=== PATIENT | male | born 1970 | race Caucasian/White ===

== ENCOUNTER 2018-10-22 16:56 | Emergency (ER) | payer MEDICAID, OTHER ==
[2018-10-22] MEDS ORDERED: Sodium Chloride 0.9% 10 ML Syringe FLUSH PRN (18:00)
[2018-10-22] MEDS ORDERED: Sodium Chloride 0.9% 1,000 ML IV ONE (18:00)
[2018-10-22] MEDS ORDERED: Ketorolac 30 MG/ML SDV IVPUSH ONE (18:00)
[2018-10-22] MEDS ORDERED: traMADol 50 MG Tab PO ONE (20:03)
[2018-10-22] MEDS ORDERED: Acetaminophen 325 MG Tab PO ONE (20:03)
--- NOTE | 2018-10-22 20:16 | EDM.PDOC ---
ED HPI GENERAL MEDICAL PROBLEM - General Chief Complaint: Fever Stated Complaint: FEVER/BODY ACHES Time Seen by Provider: 10/22/18 18:00 Source of Information: Reports: Patient History Limitations: Reports: No Limitations - History of Present Illness INITIAL COMMENTS - FREE TEXT/NARRATIVE: 48-year-old male presents for evaluation and treatment of a fever. Patient reports symptoms started last night. Current symptoms include fevers, chills, body aches and nausea. He denies any diarrhea vomiting, dysuria, cough, chest pain, abdominal pain or any skin rashes. Additionally he does denies any sore throat, runny nose or upper respiratory symptoms. Patient is a type I diabetic. Last sugar was 171. Patient reports he has been outside plenty but no tick bites any nose but has had plenty of mosquito bites. Primary care providers Dr. Ball. Patient reports that he has a history of renal disease. - Related Data Allergies Allergy/AdvReac Type Severity Reaction Status Date / Time morphine Allergy Nausea and Verified 12/27/14 07:38 Vomiting [id number]-[id number] Reductase Allergy Muscle Verified 10/22/18 17:07 Inhibitor Aches Home Meds: Home Meds Albuterol Sulfate [Albuterol Sulfate Hfa] 8.5 gm IH DAILY 10/22/18 [History] Aspirin [Ecotrin EC] 81 mg PO DAILY 10/22/18 [History] Escitalopram Oxalate [Lexapro] 20 mg PO DAILY 10/22/18 [History] Gabapentin [Neurontin] 300 mg PO DAILY 10/22/18 [History] Gabapentin [Neurontin] 600 mg PO BEDTIME 10/22/18 [History] Insulin Aspart [NovoLOG] 0 unit SQ WITHMEALSANDBED 10/22/18 [History] Losartan [Cozaar] 100 mg PO DAILY 10/22/18 [History] Metoprolol Succinate [Toprol Xl] 50 mg PO DAILY 10/22/18 [History] Multivitamin with Minerals [Multiple Vitamin] 1 tab PO DAILY 10/22/18 [History] Ranitidine [Zantac] 150 mg PO DAILY 10/22/18 [History] Sildenafil [Revatio] 20 mg PO TID 10/22/18 [History] Sodium Bicarbonate 650 mg PO BID 10/22/18 [History] amLODIPine Besylate [Norvasc] 5 mg PO DAILY 10/22/18 [History] buPROPion HCl [Wellbutrin Xl] 150 mg PO DAILY 10/22/18 [History] busPIRone [Buspar] 15 mg PO DAILY 10/22/18 [History] hydroCHLOROthiazide [Hydrochlorothiazide] 25 mg PO DAILY 10/22/18 [History] Past Medical History Cardiovascular History: Reports: High Cholesterol, Hypertension Genitourinary History: Reports: Renal Disease Endocrine/Metabolic History: Reports: Diabetes, Type II Social & Family History - Tobacco Use Smoking Status *Q: Never Smoker - Recreational Drug Use Recreational Drug Use: No ED ROS GENERAL - Review of Systems Review Of Systems: See Below Constitutional: Reports: Fever, Chills, Other (bodyaches) HEENT: Denies: Ear Pain, Throat Pain Respiratory: Denies: Cough Cardiovascular: Denies: Chest Pain GI/Abdominal: Denies: Abdominal Pain, Diarrhea, Nausea, Vomiting : Denies: Dysuria Musculoskeletal: Denies: Neck Pain Skin: Denies: Rash Neurological: Reports: Headache ED EXAM, GENERAL - Physical Exam Exam: See Below Exam Limited By: No Limitations General Appearance: Alert, WD/WN, No Apparent Distress, Obese Eye Exam: Bilateral Eye: Normal Inspection Ears: Normal External Exam, Normal Canal, Hearing Grossly Normal, Hearing Loss Nose: Normal Inspection Throat/Mouth: Normal Inspection, Normal Lips, Normal Teeth, Normal Gums, Normal Oropharynx, Normal Voice, No Airway Compromise Neck: Normal Inspection, Supple, Non-Tender, Full Range of Motion Respiratory/Chest: No Respiratory Distress, Lungs Clear, Normal Breath Sounds Cardiovascular: Normal Peripheral Pulses, Regular Rate, Rhythm, No Murmur GI/Abdominal: Normal Bowel Sounds, Soft, Non-Tender Extremities: Normal Inspection Neurological: Alert, Oriented, Normal Cognition Psychiatric: Normal Affect, Normal Mood Skin Exam: Normal Color, Diaphoretic, Increased Warmth Course - Vital Signs Last Recorded V/S: Last Vital Signs Temp 97.8 F 10/22/18 20:29 Pulse 80 10/22/18 20:29 Resp 17 10/22/18 20:29 BP 153/82 H 10/22/18 20:29 Pulse Ox 95 10/22/18 20:29 - Orders/Labs/Meds Labs: Laboratory Tests 10/22/18 10/22/18 10/22/18 Range/Units 17:52 17:52 17:52 WBC 7.57 (4.23-9.07) K/mm3 RBC 4.72 (4.63-6.08) M/mm3 Hgb 13.8 (13.7-17.5) gm/L Hct 39.8 L (40.1-51.0) % MCV 84.3 (79.0-92.2) fl MCH 29.2 (25.7-32.2) pg MCHC 34.7 (32.2-35.5) g/dl RDW Std Deviation 40.6 (35.1-43.9) fL Plt Count 186 (163-337) K/mm3 MPV 9.6 (9.4-12.3) fl Neut % (Auto) 86.3 H (34.0-67.9) % Lymph % (Auto) 7.0 L (21.8-53.1) % [place] % (Auto) 6.2 (5.3-12.2) % Eos % (Auto) 0.1 L (0.8-7.0) Baso % (Auto) 0.1 (0.1-1.2) % Neut # (Auto) 6.53 H (1.78-5.38) K/mm3 Lymph # (Auto) 0.53 L (1.32-3.57) K/mm3 [place] # (Auto) 0.47 (0.30-0.82) K/mm3 Eos # (Auto) 0.01 L (0.04-0.54) K/mm3 Baso # (Auto) 0.01 (0.01-0.08) K/mm3 Manual Slide Review Abnormal smear Sodium 136 (136-145) mEq/L Potassium 4.2 (3.5-5.1) mEq/L Chloride 100 (98-107) mEq/L Carbon Dioxide 27 (21-32) mEq/L Anion Gap 13.2 (5-15) BUN 31 H (7-18) mg/dL Creatinine 2.1 H (0.7-1.3) mg/dL Est Cr Clr Drug Dosing 46.81 mL/min Estimated GFR (MDRD) 34 (>60) mL/min BUN/Creatinine Ratio 14.8 (14-18) Glucose 196 H (74-106) mg/dL Calcium 8.1 L (8.5-10.1) mg/dL Total Bilirubin 0.5 (0.2-1.0) mg/dL AST 13 L (15-37) U/L ALT 18 (16-63) U/L Alkaline Phosphatase 93 (46-116) U/L C-Reactive Protein 13.9 H* (<1.0) mg/dL Total Protein 6.2 L (6.4-8.2) g/dl Albumin 2.9 L (3.4-5.0) g/dl Globulin 3.3 gm/dL Albumin/Globulin Ratio 0.9 L (1-2) Urine Color (Yellow) Urine Appearance (Clear) Urine pH (5.0-8.0) Ur Specific [place] (1.005-1.030) Urine Protein (Negative) Urine Glucose (UA) (Negative) Urine Ketones (Negative) Urine Occult Blood (Negative) Urine Nitrite (Negative) Urine Bilirubin (Negative) Urine Urobilinogen (0.2-1.0) Ur Leukocyte Esterase (Negative) Urine RBC (0-5) /hpf Urine WBC (0-5) /hpf Ur Squamous Epith Cells (0-5) /hpf Urine Bacteria (FEW) /hpf Urine Mucus (FEW) /hpf West Nile Virus IgM Ab Negative 10/22/18 Range/Units 18:22 WBC (4.23-9.07) K/mm3 RBC (4.63-6.08) M/mm3 Hgb (13.7-17.5) gm/L Hct (40.1-51.0) % MCV (79.0-92.2) fl MCH (25.7-32.2) pg MCHC (32.2-35.5) g/dl RDW Std Deviation (35.1-43.9) fL Plt Count (163-337) K/mm3 MPV (9.4-12.3) fl Neut % (Auto) (34.0-67.9) % Lymph % (Auto) (21.8-53.1) % [place] % (Auto) (5.3-12.2) % Eos % (Auto) (0.8-7.0) Baso % (Auto) (0.1-1.2) % Neut # (Auto) (1.78-5.38) K/mm3 Lymph # (Auto) (1.32-3.57) K/mm3 [place] # (Auto) (0.30-0.82) K/mm3 Eos # (Auto) (0.04-0.54) K/mm3 Baso # (Auto) (0.01-0.08) K/mm3 Manual Slide Review Sodium (136-145) mEq/L Potassium (3.5-5.1) mEq/L Chloride (98-107) mEq/L Carbon Dioxide (21-32) mEq/L Anion Gap (5-15) BUN (7-18) mg/dL Creatinine (0.7-1.3) mg/dL Est Cr Clr Drug Dosing mL/min Estimated GFR (MDRD) (>60) mL/min BUN/Creatinine Ratio (14-18) Glucose (74-106) mg/dL Calcium (8.5-10.1) mg/dL Total Bilirubin (0.2-1.0) mg/dL AST (15-37) U/L ALT (16-63) U/L Alkaline Phosphatase (46-116) U/L C-Reactive Protein (<1.0) mg/dL Total Protein (6.4-8.2) g/dl Albumin (3.4-5.0) g/dl Globulin gm/dL Albumin/Globulin Ratio (1-2) Urine Color Yellow (Yellow) Urine Appearance Clear (Clear) Urine pH 7.0 (5.0-8.0) Ur Specific [place] 1.015 (1.005-1.030) Urine Protein 2+ H (Negative) Urine Glucose (UA) Negative (Negative) Urine Ketones Negative (Negative) Urine Occult Blood Trace-lysed H (Negative) Urine Nitrite Negative (Negative) Urine Bilirubin Negative (Negative) Urine Urobilinogen 0.2 (0.2-1.0) Ur Leukocyte Esterase Negative (Negative) Urine RBC 0-5 (0-5) /hpf Urine WBC Not seen (0-5) /hpf Ur Squamous Epith Cells Not seen (0-5) /hpf Urine Bacteria Rare (FEW) /hpf Urine Mucus Rare (FEW) /hpf West Nile Virus IgM Ab Meds: Medications Discontinued Medications Generic Name Dose Route Start Last Admin Trade Name Freq PRN Reason Stop Dose Admin Acetaminophen 975 mg 10/22/18 20:03 10/22/18 20:07 Tylenol PO 10/22/18 20:04 975 mg NOW ONE Administration Sodium Chloride 1,000 mls @ 999 mls/hr 10/22/18 18:00 10/22/18 18:13 Normal Saline IV 10/22/18 19:00 999 mls/hr ONETIME ONE Administration Ketorolac Tromethamine 30 mg 10/22/18 18:00 10/22/18 18:14 Toradol IVPUSH 10/22/18 18:01 30 mg ONETIME ONE Administration Sodium Chloride 10 ml 10/22/18 18:00 10/22/18 18:14 Saline Flush FLUSH 10 ml ASDIRECTED PRN Administration Keep Vein Open Tramadol HCl 50 mg 10/22/18 20:03 10/22/18 20:07 Ultram PO 10/22/18 20:04 50 mg ONETIME ONE Administration - Radiology Interpretation Free Text/Narrative:: Two-view chest x-ray shows no acute intrathoracic process. - Re-Assessments/Exams Free Text/Narrative Re-Assessment/Exam: 10/22/18 20:02 Reviewed the labs and chest x-ray with the patient. His strep and flu were both negative as well Suspect viral upper respiratory infection. Recommend symptomatic care and close follow-up with primary care provider. Discharge instructions as documented. Departure - Departure Time of Disposition: 20:08 Disposition: Home, Self-Care 01 Condition: Fair Clinical Impression: Fever - Discharge Information *PRESCRIPTION DRUG MONITORING PROGRAM REVIEWED*: No *COPY OF PRESCRIPTION DRUG MONITORING REPORT IN PATIENT CHASTITY: No Instructions: Fever, Adult, [id number] Referrals: Benedict Mg MD [Primary Care Provider] - Forms: ED Department Discharge Additional Instructions: [id number] Tylenol and Motrin as needed for fevers and discomfort. Make sure you are drinking plenty of fluids. If you continue to have symptoms by Thursday follow-up with your primary care provider. Please return to the ER if your symptoms change or worsen.
[2018-10-22 20:30] VITALS: BP 153/82
--- NOTE | 2018-10-24 11:47 | CR ---
Chest: Two views of the chest were obtained. Comparison: No previous chest x-ray. Heart size and mediastinum are within normal limits. Lungs are clear with no acute parenchymal change. Bony structures are grossly intact. Impression: 1. Nothing acute is appreciated on two-view chest x-ray. Diagnostic code #1
== END 2018-10-22 20:27 | disposition home or self-care (01) ==
LOC: JD.ED 16:56
DX: R50.9 Fever, unspecified (principal); I10 Essential (primary) hypertension; E11.9 Type 2 diabetes mellitus without complications; Z88.5 Allergy status to narcotic agent; Z88.8 Allergy status to other drugs, medicaments and biological substances; Z79.82 Long term (current) use of aspirin; Z79.4 Long term (current) use of insulin; Z79.899 Other long term (current) drug therapy
CPT/HCPCS: 36415; 71046; 80053; 81001; 85025; 86140; 86788; 87081; 87430; 87804; 96361; 96374; 99283; A9270; J1885; J7040

== ENCOUNTER 2019-11-28 12:32 | Emergency (ER) | payer MEDICAID, OTHER ==
[2019-11-28] MEDS ORDERED: Sodium Chloride 0.9% 10 ML Syringe FLUSH PRN (13:17)
--- NOTE | 2019-11-28 15:20 | EDM.PDOC ---
ED HPI GENERAL MEDICAL PROBLEM - General Chief Complaint: Neurological Problem Stated Complaint: LIGHTHEADED Time Seen by Provider: 11/28/19 13:07 Source of Information: Reports: Patient History Limitations: Reports: No Limitations - History of Present Illness INITIAL COMMENTS - FREE TEXT/NARRATIVE: The patient presents because he was lightheaded. He was driving this morning a nd he felt lightheaded and needed to pack puller and have someone else drive. He says this has never happened before. He has no chest pain or shortness of breath. He has no fever, chills, or cough. He has no abdominal pain, nausea or vomiting. He has a history of type II diabetes and chronic renal issues. Onset: Sudden Duration: Hour(s): Severity: Moderate Improves with: Reports: None Worsens with: Reports: None Associated Symptoms: Reports: No Other Symptoms - Related Data Allergies Allergy/AdvReac Type Severity Reaction Status Date / Time morphine Allergy Nausea and Verified 12/27/14 07:38 Vomiting Bowmnbg-[id number] Reductase Allergy Muscle Verified 10/22/18 17:07 Inhibitor Aches Home Meds: Home Meds Albuterol Sulfate [Albuterol Sulfate Hfa] 8.5 gm IH DAILY 10/22/18 [History] Aspirin [Ecotrin EC] 81 mg PO DAILY 10/22/18 [History] Escitalopram Oxalate [Lexapro] 20 mg PO DAILY 10/22/18 [History] Insulin Aspart [NovoLOG] 0 unit SQ WITHMEALSANDBED 10/22/18 [History] Losartan [Cozaar] 100 mg PO DAILY 10/22/18 [History] Metoprolol Succinate [Toprol Xl] 50 mg PO DAILY 10/22/18 [History] Multivitamin with Minerals [Multiple Vitamin] 1 tab PO DAILY 10/22/18 [History] Sildenafil [Revatio] 20 mg PO TID 10/22/18 [History] Sodium Bicarbonate 650 mg PO BID 10/22/18 [History] amLODIPine Besylate [Norvasc] 5 mg PO DAILY 10/22/18 [History] buPROPion HCL [Wellbutrin Xl] 150 mg PO DAILY 10/22/18 [History] busPIRone [Buspar] 15 mg PO DAILY 10/22/18 [History] hydroCHLOROthiazide [Hydrochlorothiazide] 25 mg PO DAILY 10/22/18 [History] Past Medical History Cardiovascular History: Reports: High Cholesterol, Hypertension Gastrointestinal History: Reports: GERD Genitourinary History: Reports: Renal Disease Musculoskeletal History: Reports: Other (See Below) Other Musculoskeletal History: right lower leg fracture with hardware- has been removed Psychiatric History: Reports: Anxiety, Depression Endocrine/Metabolic History: Reports: Diabetes, Type I Oncologic (Cancer) History: Reports: Other (See Below) Other Oncologic History: right testicle cancer - Past Surgical History GI Surgical History: Reports: Appendectomy Social & Family History - Tobacco Use Smoking Status *Q: Never Smoker - Caffeine Use Caffeine Use: Reports: Soda - Recreational Drug Use Recreational Drug Use: No ED ROS GENERAL - Review of Systems Review Of Systems: See Below Constitutional: Reports: No Symptoms HEENT: Reports: No Symptoms Respiratory: Reports: No Symptoms Cardiovascular: Reports: Lightheadedness. Denies: Chest Pain Endocrine: Reports: No Symptoms GI/Abdominal: Reports: No Symptoms : Reports: No Symptoms Musculoskeletal: Reports: No Symptoms ED EXAM, NEURO - Physical Exam Exam: See Below Exam Limited By: No Limitations General Appearance: Alert, No Apparent Distress Ears: Normal External Exam Nose: Normal Inspection Head Exam: Atraumatic, Normocephalic Neck: Normal Inspection Respiratory/Chest: No Respiratory Distress, Lungs Clear, Normal Breath Sounds Cardiovascular: Regular Rate, Rhythm, No Edema, No Murmur GI/Abdominal: Soft, Non-Tender, No Organomegaly, No Mass Neurological: Alert, No Motor/Sensory Deficits, Oriented x 3 EKG INTERPRETATION EKG Date: 11/28/19 Time: 13:25 Rhythm: NSR Rate (Beats/Min): 70 Ophiem: Normal P-Wave: Present QRS: Normal ST-T: Normal QT: Normal Course - Vital Signs Last Recorded V/S: Last Vital Signs Temp 97.6 F 11/28/19 13:07 Pulse 79 11/28/19 13:07 Resp 20 11/28/19 13:07 BP 168/84 H 11/28/19 13:07 Pulse Ox 98 11/28/19 13:07 - Orders/Labs/Meds Orders: Active Orders 24 hr Category Date Time Status Cardiac Monitoring [RC] . DIRECTED Care 11/28/19 13:17 Active EKG Documentation Completion [RC] STAT Care 11/28/19 13:18 Active Peripheral IV Care [RC] . DIRECTED Care 11/28/19 13:18 Active CORONAVIRUS COVID-19 PCR PHL Stat Lab 11/28/19 14:23 Received Sodium Chloride 0.9% [Saline Flush] Med 11/28/19 13:17 Active 10 ml FLUSH ASDIRECTED PRN Peripheral IV Insertion Adult [OM.PC] Stat Oth 11/28/19 13:17 Ordered Medication Orders Sodium Chloride (Saline Flush) 10 ml FLUSH ASDIRECTED PRN PRN Reason: Keep Vein Open Labs: Laboratory Tests 11/28/19 11/28/19 11/28/19 Range/Units 13:35 13:35 13:35 WBC 6.68 (4.23-9.07) K/mm3 RBC 4.82 (4.63-6.08) M/mm3 Hgb 13.6 L (13.7-17.5) gm/dl Hct 40.8 (40.1-51.0) % MCV 84.6 (79.0-92.2) fl MCH 28.2 (25.7-32.2) pg MCHC 33.3 (32.2-35.5) g/dl RDW Std Deviation 41.9 (35.1-43.9) fL Plt Count 187 (163-337) K/mm3 MPV 9.6 (9.4-12.3) fl Neut % (Auto) 69.4 H (34.0-67.9) % Lymph % (Auto) 18.4 L (21.8-53.1) % [place] % (Auto) 7.2 (5.3-12.2) % Eos % (Auto) 4.3 (0.8-7.0) Baso % (Auto) 0.3 (0.1-1.2) % Neut # (Auto) 4.63 (1.78-5.38) K/mm3 Lymph # (Auto) 1.23 L (1.32-3.57) K/mm3 [place]ess # (Auto) 0.48 (0.30-0.82) K/mm3 Eos # (Auto) 0.29 (0.04-0.54) K/mm3 Baso # (Auto) 0.02 (0.01-0.08) K/mm3 D-Dimer, Quantitative 0.27 (0.19-0.50) mg/L VBG pH (7.30-7.40) Sodium 137 (136-145) mEq/L Potassium 4.4 (3.5-5.1) mEq/L Chloride 100 (98-107) mEq/L Carbon Dioxide 26 (21-32) mEq/L Anion Gap 15.4 H (5-15) BUN 40 H (7-18) mg/dL Creatinine 2.3 H (0.7-1.3) mg/dL Est Cr Clr Drug Dosing 42.29 mL/min Estimated GFR (MDRD) 31 (>60) mL/min BUN/Creatinine Ratio 17.4 (14-18) Glucose 271 H (74-106) mg/dL Serum Osmolality 306 H (280-300) mosm/kg Calcium 8.9 (8.5-10.1) mg/dL Total Bilirubin 0.4 (0.2-1.0) mg/dL AST 16 (15-37) U/L ALT 26 (16-63) U/L Alkaline Phosphatase 112 (46-116) U/L Troponin I < 0.017 (0.00-0.056) ng/mL C-Reactive Protein 1.4 H* (<1.0) mg/dL Total Protein 6.4 (6.4-8.2) g/dl Albumin 3.2 L (3.4-5.0) g/dl Globulin 3.2 gm/dL Albumin/Globulin Ratio 1.0 (1-2) Ketones (0.0-0.3) mM 11/28/19 11/28/19 Range/Units 13:35 13:40 WBC (4.23-9.07) K/mm3 RBC (4.63-6.08) M/mm3 Hgb (13.7-17.5) gm/dl Hct (40.1-51.0) % MCV (79.0-92.2) fl MCH (25.7-32.2) pg MCHC (32.2-35.5) g/dl RDW Std Deviation (35.1-43.9) fL Plt Count (163-337) K/mm3 MPV (9.4-12.3) fl Neut % (Auto) (34.0-67.9) % Lymph % (Auto) (21.8-53.1) % [place] % (Auto) (5.3-12.2) % Eos % (Auto) (0.8-7.0) Baso % (Auto) (0.1-1.2) % Neut # (Auto) (1.78-5.38) K/mm3 Lymph # (Auto) (1.32-3.57) K/mm3 Ness # (Auto) (0.30-0.82) K/mm3 Eos # (Auto) (0.04-0.54) K/mm3 Baso # (Auto) (0.01-0.08) K/mm3 D-Dimer, Quantitative (0.19-0.50) mg/L VBG pH 7.38 (7.30-7.40) Sodium (136-145) mEq/L Potassium (3.5-5.1) mEq/L Chloride (98-107) mEq/L Carbon Dioxide (21-32) mEq/L Anion Gap (5-15) BUN (7-18) mg/dL Creatinine (0.7-1.3) mg/dL Est Cr Clr Drug Dosing mL/min Estimated GFR (MDRD) (>60) mL/min BUN/Creatinine Ratio (14-18) Glucose (74-106) mg/dL Serum Osmolality (280-300) mosm/kg Calcium (8.5-10.1) mg/dL Total Bilirubin (0.2-1.0) mg/dL AST (15-37) U/L ALT (16-63) U/L Alkaline Phosphatase (46-116) U/L Troponin I (0.00-0.056) ng/mL C-Reactive Protein (<1.0) mg/dL Total Protein (6.4-8.2) g/dl Albumin (3.4-5.0) g/dl Globulin gm/dL Albumin/Globulin Ratio (1-2) Ketones 0.04 (0.0-0.3) mM Meds: Medications Generic Name Dose Route Start Last Admin Trade Name Freq PRN Reason Stop Dose Admin Sodium Chloride 10 ml 11/28/19 13:17 Saline Flush FLUSH ASDIRECTED PRN Keep Vein Open - Re-Assessments/Exams Free Text/Narrative Re-Assessment/Exam: 11/28/19 15:17 I ordered an IV saline lock, COVID 19, EKG, and labs. 11/28/19 15:18 His CBC looks good. His D-dimer was negative. His venous pH was normal at 7.38. His anion gap was elevated at 15.4. His BUN was elevated at 40 along with an elevated creatinine of 2.3. This is at his baseline. His glucose is elevated at 271. His serum osmolality is elevated at 306. His troponin is negative. His CRP is elevated at 1.4. His Ketones are negative. Departure - Departure Time of Disposition: 15:50 Disposition: Home, Self-Care 01 Condition: Good Clinical Impression: Lightheadedness, Renal insufficiency - Discharge Information *PRESCRIPTION DRUG MONITORING PROGRAM REVIEWED*: Not Applicable *COPY OF PRESCRIPTION DRUG MONITORING REPORT IN PATIENT CHASTITY: Not Applicable Referrals: Benedict Mg MD [Primary Care Provider] - 1 Week Forms: ED Department Discharge Additional Instructions: Drink plenty of fluids. Take your medication as prescribed. Follow up with Dr Mg. Please return if you are worse. Sepsis Event Note (ED) - Evaluation Sepsis Screening Result: No Definite Risk - Focused Exam Vital Signs: Vital Signs Temp Pulse Resp BP Pulse Ox 11/28/19 13:07 97.6 F 79 20 168/84 H 98 - My Orders Last 24 Hours: My Active Orders 11/28/19 13:17 Cardiac Monitoring [RC] . DIRECTED Sodium Chloride 0.9% [Saline Flush] 10 ml FLUSH ASDIRECTED PRN Peripheral IV Insertion Adult [OM.PC] Stat 11/28/19 13:18 EKG Documentation Completion [RC] STAT Peripheral IV Care [RC] . DIRECTED 11/28/19 14:23 CORONAVIRUS COVID-19 PCR PHL Stat - Assessment/Plan Last 24 Hours: My Active Orders 11/28/19 13:17 Cardiac Monitoring [RC] . DIRECTED Sodium Chloride 0.9% [Saline Flush] 10 ml FLUSH ASDIRECTED PRN Peripheral IV Insertion Adult [OM.PC] Stat 11/28/19 13:18 EKG Documentation Completion [RC] STAT Peripheral IV Care [RC] . DIRECTED 11/28/19 14:23 CORONAVIRUS COVID-19 PCR PHL Stat
[2019-11-28 16:24] VITALS: BP 148/79; PULSE 68
== END 2019-11-28 16:20 | disposition home or self-care (01) ==
LOC: JD.ED 12:32
DX: R42 Dizziness and giddiness (principal); N28.9 Disorder of kidney and ureter, unspecified; I10 Essential (primary) hypertension; F41.9 Anxiety disorder, unspecified; F32.9 Major depressive disorder, single episode, unspecified; E10.9 Type 1 diabetes mellitus without complications; Z90.49 Acquired absence of other specified parts of digestive tract; Z88.5 Allergy status to narcotic agent; Z88.8 Allergy status to other drugs, medicaments and biological substances; Z79.82 Long term (current) use of aspirin; Z79.899 Other long term (current) drug therapy; Z20.828 Contact with and (suspected) exposure to other viral communicable diseases
CPT/HCPCS: 36415; 80053; 82009; 82800; 83930; 84484; 85025; 85379; 86140; 93005; 93010; 99283; 99284-25; U0002